=== PATIENT | female | born 1970 | race Caucasian/White ===

== ENCOUNTER 2016-06-25 18:43 | Emergency (ER) | payer OTHER ==
[~2016-06-25] VITALS: Ht 165.1 cm; Wt 107.5 kg
[2016-06-25 18:59] VITALS: Ht 165.1 cm; Wt 107.5 kg
[2016-06-25] MEDS ORDERED: CEPH-443 PO (20:27)
[2016-06-25] MEDS ORDERED: BACTDS PO (20:27)
[2016-06-25] MEDS ORDERED: HYDR-906 PO (20:28)
[2016-06-25] MEDS ORDERED: HYDROCODONE/APAP (5/325) TAB PO ONE (20:30)
--- NOTE | 2016-06-25 20:36 | ERD ---
ER Documentation Chief Complaint Date/Time DATE: 06/25/16 TIME: 20:33 Chief Complaint LT BREAST PAIN THAT IS SHARP LIKE X 2 WKS; NO DISCHARGE HPI Patient is a 45-year-old female who presents to the ED with left breast pain. She states that it has been increasing in redness and pain in the last 2 weeks. She denies discharge. She denies fever or chills. She denies abdominal pain , nausea, vomiting or diarrhea. She states that she has had "pimples" on her left breast but these have gone. She states that this 1 continue to increase in size and redness. She denies chest pain, shortness of breath or difficulty breathing. She denies headache or dizziness. She is concerned that this may be infected. ROS All systems reviewed and are negative except as per history of present illness. Medications Home Meds Active Scripts Hydrocodone/Acetaminophen (Merigold 5-325 Tablet) 1 Each Tablet, 1 TAB PO Q6H Y for PAIN, #7 TAB Prov:AMADOR KUMAR PA-C 06/25/16 Cephalexin* (Keflex*) 500 Mg Capsule, 500 MG PO QID for 5 Days, CAP Prov:AMADOR KUMAR PA-C 06/25/16 Sulfamethoxazole-Trimethoprim* (Bactrim* DS) 800-160 Mg Tab, 1 TAB PO BID for 5 Days, TAB Prov:AMADRO KUMAR PA-C 06/25/16 Allergies Allergies: Coded Allergies: No Known Drug Allergy (Verified Allergy, Unknown, 01/13/07) PMhx/Soc History of Surgery: Yes (c/s, gall bladder removal) Anesthesia Reaction: No Hx Neurological Disorder: No Hx Respiratory Disorders: No Hx Cardiac Disorders: No Hx Psychiatric Problems: No Hx Miscellaneous Medical Probl: Yes (DM2) Hx Alcohol Use: No Hx Substance Use: No Hx Tobacco Use: No FmHx Family History: No coronary disease, No diabetes, No other Physical Exam Vitals Vital Signs Date Time Temp Pulse Resp B/P Pulse Ox O2 Delivery O2 Flow Rate FiO2 06/25/16 20:43 98.3 91 18 145/87 99 06/25/16 18:59 98.3 91 18 166/96 98 Physical Exam GENERAL: Well-developed, well-nourished female. Appears in mild distress HEAD: Normocephalic, atraumatic. EYES: Pupils are equally reactive bilaterally. EOMs grossly intact. No conjunctival erythema. ENT: Moist mucous membranes. No uvula deviation. No kissing tonsils. No exudates. NECK: Supple. No lymphadenopathy or thyromegaly. No meningismus. negative kernig. negative brudinski. LUNG: Clear to auscultation bilaterally. No rhonchi, wheezing, rales or coarse breath sounds. HEART: Regular rate and rhythm. No murmurs, rubs or gallops. BREAST: erythematous indurated lesion on left breast. no drainage. no fluctuation. ABDOMEN: No scars, ecchymosis or rashes noted. Soft, nontender, and nondistended. Positive bowel sounds in all four quadrants. No rebound tenderness , no guarding. (-) McBurneys point tenderness. No CVA tenderness. BACK: No midline tenderness. Extremities: Equal pulses bilaterally. No peripheral clubbing, cyanosis or edema. No unilateral leg swelling. NEUROLOGIC: Alert and oriented. Moving all four extremities. 5/5 strength in all extremities. Normal speech. Steady gait. SKIN: Normal color. Warm and dry. No rashes or lesions. Capillary refill < 2 seconds Results 24 hrs Current Medications Medications (Trade) Dose Ordered Sig/Shital Route PRN Reason Start Time Stop Time Status Last Admin Dose Admin Acetaminophen/ Hydrocodone Bitart (Merigold (5/325)) 1 tab ONCE ONCE PO 06/25/16 20:30 06/25/16 20:31 DC 06/25/16 20:33 Procedures/MDM ER COURSE: I kept the patient and/or family informed of laboratory and diagnostic imaging results throughout the emergency room course. MEDICATIONS: Merigold. Patient tolerated medication well with no adverse reaction MEDICAL DECISION MAKING: This is a 45-year-old diabetic female who presents with left breast pain. Vital signs were reviewed. Patient is afebrile. Patient is not hypoxic. Patient likely has cellulitis of her left breast. I do not think an incision or drainage is needed at this time as it is indurated with no fluctuance. Low suspicion for necrotizing fasciitis, SJS, toxic epidermal necrolysis, Kawasaki, erythema multiforme, gangrene, scarlet fever, meningococcemia, sepsis, anaphylaxis. DISCHARGE: At this time, patient is stable for discharge and outpatient management with no new complaints during the ER course. Patient was sent home with Bactrim and Keflex and Merigold. Patient advised to return to the ED in 2 days for recheck of area.. Patient will be discharged home with instructions to recheck for new or worsening symptoms such as fever, nausea, weakness, LOC and to follow up with primary care in the next 1-2 days. Patient was advised to return to the ER for any new or worsening symptoms. Plan was discussed and patient and/or family understands and agrees. Home instructions were given. Departure Diagnosis: Primary Impression: Breast pain Condition: Stable Patient Instructions: Pain Management Additional Instructions: Call your primary care doctor TOMORROW for an appointment during the next 1-2 days.See the doctor sooner or return here if your condition worsens before your appointment time. AMADOR KUMAR PA-C Jun 25, 2016 20:36
[2016-06-25 20:43] VITALS: BP 145/87; PULSE 91; RESP 18; TEMP 98.3
== END 2016-06-25 20:45 | disposition home or self-care (01) ==
LOC: FTE 18:43
DX: N64.4 Mastodynia (principal); E11.9 Type 2 diabetes mellitus without complications
CPT/HCPCS: 99284